=== PATIENT | male | born 1965 | race African-American/Black ===

== ENCOUNTER 2016-12-11 19:29 | Inpatient (IN) | payer MEDICARE, MEDICAID ==
[~2016-12-11 19:29] MED LIST: IMI100 PO
[2016-12-11 19:32] VITALS: BP 148/102; PULSE 112; RESP 16; O2SAT 94
[2016-12-11] MEDS ORDERED: 0.9% Sodium Chloride 1,000 ML IV ONE ×3 (19:53→21:25)
--- NOTE | 2016-12-11 19:53 | ED.REPORT ---
HPI-General Illness Date of Service Dec 11, 2016 ED Provider: Clarke Jernigan MD 51 year old male who presents to the ED referred from his PCP due to a BGL of 1202. Pt saw his PCP, Dr. Brown, due to recent flu-like illness. Pt states that he has been feeling thirsty, urinating more frequently and vomiting in the last 2 weeks. Pt has no history of DM or any other known medical history. No CP, SOB , fever, chills and abd pain. Labs today were Na+ 122, K+ 4.9 BUN 22 Creatinine 1.38 BGL 1202 and Nl transaminases. Nursing Notes Stated Complaint: HIGH BLOOD SUGAR Chief Complaint: General Complaint Nursing Notes Reviewed: Yes Allergies: Coded Allergies: No Known Allergies (Verified Allergy, Unknown, 10/16/16) Scheduled Gabapentin (Gabapentin) 300 Mg Capsule 300 MG PO TID Scheduled PRN Hydrocodone-Acetaminophen 5-325 mg (Hydrocodone-Acetaminophen 5-325 mg) 1 Each Tablet 1 EACH PO QID PRN PRN For Pain Sumatriptan (Imitrex) 100 Mg Tablet 100 MG PO PRN PRN PRN migraine General Time Seen by MD: 19:50 Chief Complaint Not feeling well Hx Obtained From: Patient, Primary care provider Arrived By: Walk-in Sudden in Onset?: No Onset Occurred: More than a week ago... Symptom Duration: Since onset Severity: Current: No pain currently Associated with: Denies: Chest pain, Fever, Shortness of breath Pertinent Negative: Relieved by nothing Recent Healthcare: Recent doctor visit Past Medical History Past Medical History Denies past medical history Past Surgical History right knee surgery Right inguinal herniorrhaphy Reports: Inguinal hernia repair Smoking History Smoker Current Status UNK Social History Other Social History: Ambulatory Status Independent Review of Systems Full Review of Systems Constitutional: Denies: Chills, Fever Respiratory: Denies: Non-productive cough, Shortness of breath Cardiovascular: Denies: Chest pain, Syncope GI: Reports: Nausea, Vomiting, Denies: Abdominal pain, Diarrhea Endocrine: Reports: Polydipsia, Polyuria Neurologic: Denies: Change LOC, Confusion Complete sys rev & neg: except as marked. Physical Exam Vital Signs Vital Signs Date Time Temp Pulse Resp B/P Pulse Ox O2 Delivery O2 Flow Rate FiO2 12/11/16 21:38 82 20 149/78 98 Room Air 12/11/16 19:32 37.2 112 16 148/102 94 Room Air Initial VS: Reviewed Head / Eyes: Atraumatic, Normocephalic, PERRL ENT: Conjunctiva normal, No scleral icterus Neck: Supple, Non-tender, Full range of motion Respiratory: Breath sounds normal, Clear to auscultation, No respiratory distress Cardiovascular: Regular rate & rhythm, Heart sounds normal, Intact distal pulses Abdomen / GI: Soft, Non-tender, No guarding, No rebound, No distention Extremities: Vascular intact, Neuro intact, No swelling (at calves), No tenderness (at calves) Skin: Warm, Dry, No cyanosis Neurologic: Alert, Oriented, Nonfocal Psychiatric: Mood/affect normal, Behavior normal, Normal thought content General/Constitutional: Awake, Alert Dehydrated. Pt has 4 cups Mouth: Positive: Mucous membranes dry Interpretation & Diagnostics Lab Results Interpretation Result Diagram: 12/11/16 1950 12/11/16 1950 Test 12/11/16 19:34 12/11/16 19:50 12/11/16 20:26 Hold Urine Received (Received) White Blood Count 7.1th/mm3 (3.8-10.1) Red Blood Count 5.29mil/mm3 (4.40-5.80) Hemoglobin 15.1g/dL (13.8-17.2) Hematocrit 43.8% (41.0-50.0) Mean Corpuscular Volume 82.8fL (81-100) Mean Corpuscular Hemoglobin 28.5pg (27.0-35.0) Mean Corpuscular Hemoglobin Concent 34.5% (32.0-37.0) Red Cell Distribution Width 13.0% (12.3-15.4) Platelet Count 264bil/L (150-400) Neutrophils (%) (Auto) 67.4% (40-74) Lymphocytes (%) (Auto) 21.6% (14-46) Monocytes (%) (Auto) 9.3% (4-12) Eosinophils (%) (Auto) 0.6% (0-5) Basophils (%) (Auto) 1.0% (0-3) Sodium Level 126mEq/L (134-144) Potassium Level 4.3mEq/L (3.5-5.2) Chloride Level 83mEq/L (97-108) Carbon Dioxide Level 21mmol/L (18-29) Blood Urea Nitrogen 23mg/dL (6-24) Creatinine 1.33mg/dL (0.76-1.27) Estimat Glomerular Filtration Rate 60mL/min (>59) Glucose Level 1050mg/dL (60-99) Lactic Acid Level 3.1mmol/L (0.4-2.0) Calcium Level 10.1mg/dL (8.5-10.1) Magnesium Level 2.4mg/dL (1.6-2.6) Total Bilirubin 0.8mg/dL (0.0-1.2) Aspartate Amino Transf (AST/SGOT) 24U/L (0-50) Alanine Aminotransferase (ALT/SGPT) 29U/L (0-44) Alkaline Phosphatase 243U/L (25-150) Total Protein 9.3g/dL (6.4-8.4) Albumin 4.9g/dL (3.4-5.0) Urine Color Straw (YELLOW) Urine Appearance Clear (CLEAR,HAZY) Urine pH 5.0 (5.0-8.0) Urine Specific Scheller 1.020 (1.003-1.035) Urine Protein Negativemg/dL (NEG,TRACE) Urine Glucose (UA) 1000mg/dL (NEGATIVE) Urine Ketones Negativemg/dL (NEGATIVE) Urine Occult Blood Trace (NEGATIVE) Urine Nitrite Negative (NEGATIVE) Urine Bilirubin Negative (NEGATIVE) Urine Urobilinogen Normalmg/dL (NORMAL) Urine Leukocyte Esterase Negative (NEGATIVE) Urine RBC 0-2/hpf (0-2) Urine WBC 0-5/hpf (0-5) Urine Epithelial Cells None/hpf (NONE-MOD) Urine Crystals None seen (NONE SEEN) Urine Bacteria Few/hpf (NONE-FEW) Urine Hyaline Casts None/lpf (NONE) Urine Granular Casts None seen (NONE SEEN) Urine Waxy Casts None seen (NONE SEEN) Urine Red Blood Cell Casts None seen (NONE SEEN) Urine White Blood Cell Casts None seen (NONE SEEN) Urine Mucus None seen (None Seen) Urine Trichomonas None seen (NONE SEEN) Urine Yeast None (NONE SEEN) Urinalysis Comment None Urine Culture Reflexed Not indicated Re-Eval/Medical Decision Med Decision/Clinical Course 51 year old male who presents to the ED referred from his PCP due to a BGL of 1202. Pt saw his PCP, Dr. Brown, due to recent flu-like illness. Pt states that he has been feeling thirsty, urinating more frequently and vomiting in the last 2 weeks. Pt has no history of DM or any other known medical history. No CP, SOB , fever, chills and abd pain. Labs today were Na+ 122, K+ 4.9 BUN 22 Creatinine 1.38 BGL 1202 and Nl transaminases. Here in the emergency department patient is afebrile stable vital signs. He appears dehydrated and has 5 large cups of water at his bedside which she is vigorously drinking. Laboratory studies were notable as below: CBC unremarkable Sodium 126 Chloride 83 BUN 23 Creatinine 1.33 Glucose 1050 Lactic acid 3.1 Alk phos 243 Potassium 4.3 Anion gap- 18 Patient aggressive IV fluid resuscitation and was placed on an insulin infusion. Serial glucose measurements were monitored and potassium was monitored. His glucose levels improved. Anion gap was moderately elevated though he is nontoxic in appearance. Overall presentation most consistent with mild DKA/hyperglycemic hyperosmolar state. Patient admitted to the intensive care unit on insulin drip for close electrolyte monitoring and treatment of his hyperglycemia. Source of Hx: Old records Time of Eval: 20:14 Re-Evaluation/Progress Note: Updated pt of lab results. Recommended admission for new onset diabetes. Pt understands and agrees with plan. All questions addressed. Consultation : Referral / Consult Name: Linus Cummins MD Consulted With: Hospitalist Call Returned at: 20:19 Jack Machine Operator: Will see patient, Agrees with eval, Agrees with plan, Accepts admit Counseled Regarding: Diagnosis, Lab results, Need for admission Discharge & Departure Primary Impression: Type 2 diabetes mellitus with hyperosmolar nonketotic hyperglycemia Additional Impressions: Diabetic ketoacidosis Diabetes mellitus type: other specified (including BRITNEY) Diabetes mellitus complication detail: without coma Qualified Code: E13.10 - Other specified diabetes mellitus with ketoacidosis without coma High anion gap metabolic acidosis Severe dehydration Polydipsia Polyuria Hyperglycemia Disposition: ADMITTED TO HOSPITAL Discharge Condition All VS Reviewed: Yes Referrals: Bernadette Brown MD (PCP) Scribe Attestation Portions of this note were transcribed by Ree Santiago. I, (Dr. Jernigan) personally performed the history, physical exam and medical decision-making; I reviewed and confirmed the accuracy of the information in the transcribed note. Signed by: Ree Santiago. Stella, 12/11/20162015 copies to: Bernadette Brown MD, Beck O MD Dec 11, 2016 19:53 Ree Santiago Dec 11, 2016 20:21
[2016-12-11 20:03] LABS: EOSINOPHILS % (AUTO) 0.6 % (0-5); MONOCYTES % (AUTO) 9.3 % (4-12); Mean Corpuscular Hemoglobin 28.5 pg (27.0-35.0); Mean Corpuscular Volume 82.8 fL (81-100); NEUTROPHILS % (AUTO) 67.4 % (40-74); Platelet Count 264 bil/L (150-400)
[2016-12-11] MEDS ORDERED: Dextrose 5% 0.45% NaCl 1,000 ML IV PRN ×2 (20:16→21:50)
[2016-12-11] MEDS ORDERED: Insulin Human REGular Inj 100 UNIT in 0.9% Sodium Chloride-Pha MIX 100 ML IV SCH ×2 (20:16→21:21)
[2016-12-11] MEDS ORDERED: Ondansetron 2 mg/mL 2 mL Inj IVPUSH PRN ×2 (20:20→21:20)
[2016-12-11] MEDS ORDERED: Alum-Mag Hydrox-Simeth 30 mL Suspension PO PRN ×2 (20:20→21:20)
[2016-12-11 20:27] LABS: Magnesium 2.4 mg/dL (1.6-2.6)
[2016-12-11 20:38] LABS: COLOR,URINE STRAW (YELLOW)
[2016-12-11 20:39] LABS: APPEARANCE,URINE CLEAR (CLEAR,HAZY); OCCULT BLOOD,URINE TRACE (NEGATIVE); UROBILINOGEN,URINE NORMAL (NORMAL)
[2016-12-11] MEDS ORDERED: GABA-502 PO (20:51)
[2016-12-11] MEDS ORDERED: HYDR-4003 PO (20:51)
[2016-12-11] MEDS ORDERED: Polyethylene Glycol (PEG) 17 Gm Powder PO PRN (21:20)
[2016-12-11 21:38] VITALS: BP 149/78; PULSE 82; RESP 20; O2SAT 98
[2016-12-11] MEDS ORDERED: D5 0.45% NaCl + KCl 20 mEq/L 1,000 ML IV SCH (22:05)
[2016-12-11 22:17] VITALS: BP 133/63; PULSE 81; RESP 18; O2SAT 96
--- NOTE | 2016-12-11 22:43 | PCM.HPMED ---
Subjective Date of Service Dec 11, 2016 Primary Provider: Admitting Physician: Primary Care Physician: Bernadette Brown MD Attending Physician: Chief Complaint: Abnormal labs History of Present Illness: Patient is a 51-year-old with migraines and hypertension presenting as a referral from his PCP, Dr. Brown, for abnormal BMP with glucose of 1202. Patient reports onset of polydipsia and polyuria about one weeks ago following a flu- like illness. He also reports a 10lb weight loss over the past two months. Patient states his mother and sister both have diabetes. At time of visit, the patient reports feeling well in his usual state of health. He endorses some constipation but otherwise denies abdominal pain, chest pain, shortness of breath, headache, vision change, dysuria. In the ED, vitals: temp 37.2, HR 112, RR 16 satting 94% on room air, BP 148/ 102. Labs: Na 126, Cl 83, creatinine 1.33, glucose 1050, lactic acid 3.1, alkaline phosphatase 243. Review of Systems: A comprehensive review of systems was conducted with the patient and found to be negative except as above in the History of Present Illness. Allergies Coded Allergies: No Known Allergies (Verified Allergy, Unknown, 10/16/16) Home Medications Needs verification with patient's pharmacy as he does not recall some medications. Gabapentin 300mg QHS Sumatriptan 100mg daily PRN PMH Migraine headaches Reports history of [place] in 2013 Surgical History Bilateral knee arthroscopy Hernia repair Appendectomy Family History Mother with diabetes at [id number] from colon cancer Father in 60s from [place] Sister is 37-[id number]-gwh with diabetes Social History Occupation: Unemployed Hx Alcohol Use: No Hx Substance Use: No Smoking Status: Former Smoker Living Arrangement: with Friends/Roommate Exam Vital Signs Vital Sign - Last Date Time Temp Pulse Resp B/P Pulse Ox O2 Delivery O2 Flow Rate FiO2 12/11/16 21:38 82 20 149/78 98 Room Air 12/11/16 19:32 37.2 Exam General: No acute distress, well-developed, well-nourished, appropriately interactive. Trousers are soiled in urine. HEENT: Normocephalic, atraumatic. External ears without defect. Strabismus. Pupils equal, round, and reactive to light. Anicteric sclerae, moist conjunctivae, and no lid lag. Oropharynx with dry mucous membranes. Lips dry. Partials upper and lower. Neck: Supple. No lymphadenopathy or thyromegaly. Cardiovascular: Regular rate and rhythm with no murmurs, rubs, or gallops appreciated Pulmonary: Clear to auscultation bilaterally with no crackles, wheezes, or rhonchi. Normal respiratory effort with no use of accessory muscles. Abdomen: Decreased bowel tones. Soft, nontender, mild distension. Extremities: No clubbing, cyanosis, edema, or lymphadenopathy appreciated. Skin: Normal temperature, turgor, and texture; no rash, ulcers, or subcutaneous nodules appreciated. Neurological: Cranial nerves grossly intact. Psychiatric: Normal mood and affect. Alert and oriented to person, place, and time. Slow speech. Lab and Diagnostics Result Diagram: 12/11/16194912/11/161949 Assessment & Plan Patient is a 51-year-old with migraines and hypertension presenting as a referral from his PCP for blood glucose of 1202 on routine labs and admitted for hyperosmolar hyperglycemic state. 1. Hyperosmolar hyperglycemic state, acute. Present on admission. Active -Blood glucose of 1202 from PCP with polydipsia, polyuria and weight loss -This is a new diagnosis of diabetes -NPO. Non-DKA insulin protocol -BMP Q3 hours -Patient received 2L NS in ED. Continue fluid expansion 2. Hyperlactatemia, acute. Present on admission. Active -Lactic acid 3.1 -Likely secondary to #1 and hypovolemia -IV fluids as above. Trend lactic acid 3. Acute kidney injury. Present on admission. Active -Creatinine 1.33 -Unknown acuity. No baseline -Likely secondary to hypovolemia -IV fluids -Follow with BMP 4. Hyponatremia, acute. Present on admission. Active -Pseudohyponatremia secondary to hyperglycemia -Corrected Na 143 -Follow with BMP 5. Elevated alkaline phosphatase. Acuity unknown. Present on admission. Active -Benign physical examination -Uncertain etiology. Possibly related to #1 but may be liver related -Follow with CMP 6. Hypertension, chronic. Present on admission -Patient reports taking unknown antihypertensive at home -Will need to reconcile home medications Patient Status: Patient is admitted under inpatient status with expected length of stay greater than 2 midnights due to severity of presenting symptoms, risk of adverse event, and complexity of treatment plan. VTE Prophylaxis: Sub-Q Heparin (Unfractionated) Resuscitation Status: CPR: Attempt Resuscitation Attending Statement The patient was seen and examined together with Dr. Busby on 12/11 and I agree with the history, exam and plan as outlined in the note above. Nando Busby DO Dec 11, 2016 21:53 Linus Cummins MD Dec 11, 2016 23:36
[2016-12-11 22:45] VITALS: BP 150/87; PULSE 76; RESP 18; O2SAT 96
[2016-12-11 22:53] VITALS: PULSE 78
[2016-12-11] MEDS ORDERED: ANTI DIARRHEAL PO (23:12)
[2016-12-12] VITALS (7 sets, daily range): BP systolic 115–150; BP diastolic 63–83; PULSE 60–77; RESP 16–18; O2SAT 97–98
[2016-12-12] MEDS: Heparin 5,000 Unit/mL Inj SUBQ SCH ×3 (00:46→16:56)
[2016-12-12] MEDS: Dextrose 5% 0.45% NaCl 1,000 ML IV SCH ×2 (02:47→08:05)
--- NOTE | 2016-12-12 03:19 | NUR ---
PT received from ED approximately 2300 with hyperglycemia. HE was 399 when he arrived to floor. Continuing insulin gtt per protocol. HE is currently in the 200 range and on Alg. 3. His lactate has come down nicely with hydration. Voiding in urinal, clear, yellow urine. His assessment otherwise is benign, except for a resolving rash to the dorsal aspect of his R hand. PT has some urinary urgency so he has a brief on at this time. The bed alarm is on as pt gait is slightly unsteady and he calls appropriately for RN assist to BR. HIs ownly complaint is that he is thirsty. Denies any pain. V/S WNL. ORA.
[2016-12-12 05:55] LABS: BASOPHILS % (AUTO) 0.6 % (0-3); EOSINOPHILS % (AUTO) 2.2 % (0-5); MONOCYTES % (AUTO) 11.4 % (4-12); Mean Corpuscular Hemoglobin 28.7 pg (27.0-35.0); Mean Corpuscular Volume 82.2 fL (81-100); Platelet Count 212 bil/L (150-400)
[2016-12-12 06:08] LABS: Bilirubin, Direct 0.2 mg/dL (0.0-0.3)
[2016-12-12] MEDS ORDERED: Glucose 40% Oral Gel 15 Gm Tube PO PRN (08:35)
[2016-12-12] MEDS: Insulin LISPRO 300 Unit/3 mL Inj SUBQ SCH ×3 (12:17→21:09)
--- NOTE | 2016-12-12 16:56 | PCM.PNMED ---
Subjective Date of Service Dec 12, 2016 Subjective Patient was examined at bedside today. Patient denies any chest pain, shortness of breath, nausea, vomiting, diarrhea. Patient does complain of blurry vision more than usual. Patient has a baseline blurry vision secondary to a head trauma however the patient states that he feels that this is more than his usual baseline blurry vision. Exam Vital Signs Vital Sign - Last Date Time Temp Pulse Resp B/P Pulse Ox O2 Delivery O2 Flow Rate FiO2 12/12/16 16:08 77 16 129/75 98 Room Air 12/12/16 12:05 36.9 Intake and Output 12/11/16 12/11/16 12/12/16 Cumulative From/Thru 15:00 23:00 07:00 12/11/16 19:51 - 12/12/16 06:32 Intake Total 2000 ml 1699 ml 3699 ml Output Total 500 ml 500 ml Balance 2000 ml 1199 ml 3199 ml Intake IV Total 2000 ml 1699 ml 3699 ml Output Urine Total 500 ml 500 ml Exam Physical Exam: GEN: Patient was awake, alert, responding appropriately to questions HEENT: PERRLA, left lateral strabismus, Neck soft supple, trachea midline, poor dentition with only 4-5 lower teeth CV: +S1/S2, RRR, no murmurs auscultated Respiratory: CTAB, no wheezes, rales, rhonchi GI: +bowel sounds x4, firm but, compressible, non TTP EXT: no c/c/e Neuro: CN II-XII grossly intact Psych: mood and affect were appropriate IVs and Medications Medications Reviewed: Medications were reviewed in detail Medications Current Medications Dextrose/Sodium Chloride 1,000 ml @ 50 mls/hr Q20H PRN IV; Start 12/11/16 at 20: 16; Status Cancel Insulin Human Regular/Sodium Chloride 101 ml @ 0 mls/hr Q0M IV Last administered on 12/11/16t 21:32; Admin Dose 0 MLS/HR; Start 12/11/16 at 20:16; Stop 12/11/16 at 22:42; Status DC Al Hydrox/Mg Hydrox/Simethicone 30 ml Q6 PRN PO; Start 12/11/16 at 20:20; Status Cancel Ondansetron HCl Dose range: 4 mg to 8 mg Q4H PRN IVPUSH; Start 12/11/16 at 20:20 ; Status Cancel Acetaminophen 975 mg Q6H PRN PO; Start 12/11/16 at 20:20; Status Cancel Al Hydrox/Mg Hydrox/Simethicone 30 ml Q6H PRN PO; Start 12/11/16 at 21:20 Ondansetron HCl 4 to 8 mg Q4H PRN IVPUSH; Start 12/11/16 at 21:20 Senna 17.2 mg BID PRN PO; Start 12/11/16 at 21:20 Polyethylene Glycol 17 gm DAILY PRN PO; Start 12/11/16 at 21:20 Acetaminophen 650 mg 650 mg Q4H PRN PO; Start 12/11/16 at 21:20 Insulin Human Regular 100 unit/ Sodium Chloride 101 ml @ 0 mls/hr Q0M IV; Start 12/11/16 at 21:21; Stop 12/12/16 at 08:33; Status DC Dextrose/Sodium Chloride 1,000 ml @ 50 mls/hr Q20H PRN IV; Start 12/11/16 at 21: 50; Stop 12/12/16 at 01:22; Status DC Potassium Chloride/Dextrose/ Sod Cl 1,000 ml @ 250 mls/hr Q4H IV Last administered on 12/11/16 23:04; Admin Dose 250 MLS/HR; Start 12/11/16 at 22:05; Stop 12/12/16 at 01:10; Status DC Heparin Sodium (Porcine) 5000 unit 5,000 unit Q8 SUBQ Last administered on 09:03; Admin Dose 5,000 UNIT; Start 12/12/16 at 00:30 Dextrose/Sodium Chloride 1,000 ml @ 200 mls/hr Q5H IV Last administered on 08:05; Admin Dose 200 MLS/HR; Start 12/12/16 at 00:55; Stop 12/12/16 at 08:39 ; Status DC Metformin HCl 500 mg BIDWM PO; Start 12/12/16 at 17:30 Insulin Glargine 20 unit HS SUBQ; Start 12/12/16 at 21:00 Insulin Human Lispro Nutritional Dose to be given pr... [facility] SUBQ Last administered on 12/12/16 12:17; Admin Dose 3 UNIT; Start 12/12/16 at 12:00 Lab and Diagnostics Result Diagram: 12/12/16 02012/12/16 020 Assessment & Plan Patient is a 51-year-old with migraines and hypertension presenting as a referral from his PCP for blood glucose of 1202 on routine labs and admitted for hyperosmolar hyperglycemic state. Hyperosmolar hyperglycemic state, acute. Present on admission. Active -Blood glucose of 1202 from PCP with polydipsia, polyuria and weight loss blood glucose is now under 300 -This is a new diagnosis of diabetes -Diabetic diet -Discontinue fluids -Start metformin 500 mg twice a day, Lantus 20 units subcutaneous daily at bedtime, insulin sliding scale Hyperlactatemia, acute. Present on admission. Active (resolving) -Lactic acid 3.1 on admission currently 1.8 -Likely secondary to #1 and hypovolemia -Follow up lactic acid in the morning Acute kidney injury. Present on admission. Active (resolving) St. -Creatinine 1.33--> 1.07 -Unknown acuity. No baseline -Likely secondary to hypovolemia -Follow with BMP Hyponatremia, acute. Present on admission. Active -Pseudohyponatremia secondary to hyperglycemia -Corrected Na 141 -Follow with BMP Elevated alkaline phosphatase. Acuity unknown. Present on admission. Active -Benign physical examination -Uncertain etiology. Possibly related to #1 but may be liver related -Currently alkaline phosphatase is 134 within normal ranges the elevated alkaline phosphatase is most likely secondary to the hyperosmolar hyperglycemic state -Follow with CMP Hypertension, chronic. Present on admission -Patient reports taking unknown antihypertensive at home however patient blood pressures have been stable while here patient's most recent blood pressure was 129/75 -We will continue to monitor and start antihypertensive medication if necessary. Disposition: The patient is currently progressing well and faster than anticipated. We will continue to monitor the patient's blood glucose and make changes to the patient's new medication regimen as necessary. Patient may discharge home in the next 1-2 days. VTE Prophylaxis: Sub-Q Heparin (Unfractionated) Resuscitation Status: CPR: Attempt Resuscitation Lisandra Rivera DO Dec 12, 2016 16:56
--- NOTE | 2016-12-12 19:14 | NUR ---
Insulin Pt on insulin gtt at beginning of shift which was D/C'd and Pt started on sliding scale coverage. Pt's blood sugars in the 200s this shift, Pt covered per sliding scale and metformin started this evening. Pt given some teaching on the process of checking one's blood sugar and sliding scale use, Pt able to use lancet on self this evening.
[2016-12-12] MEDS ORDERED: Insulin GLARgine 100 Unit/mL Syringe SUBQ SCH (21:00)
[2016-12-13] MEDS: Heparin 5,000 Unit/mL Inj SUBQ SCH ×2 (00:51→10:47)
[2016-12-13 03:56] VITALS: BP 126/76; PULSE 65; RESP 16; O2SAT 99
[2016-12-13 04:46] VITALS: PULSE 61
--- NOTE | 2016-12-13 06:12 | NUR ---
Progress Note PT remains stable through night. V/S WNL. NSR on tele. UP ad jolly to BR. Gait steady. BG are in 200's. He received his first dose of glargine last noc. Rechecked at 0300 and BG was 237. Message to MD requesting order for Geodetic Technician to see pt today. We continue to educate him and he demonstrated doing his own BG check. PT very polite and appreciative of care.
[2016-12-13 08:00] VITALS: PULSE 55
[2016-12-13 08:10] LABS: Mean Corpuscular Hemoglobin 28.1 pg (27.0-35.0)
[2016-12-13 10:15] VITALS: BP 127/74; PULSE 63; RESP 16
[2016-12-13] MEDS: Insulin LISPRO 300 Unit/3 mL Inj SUBQ SCH ×2 (10:47→13:08)
--- NOTE | 2016-12-13 11:05 | PCM.DIMED ---
Discharge Instructions Date of Service Dec 13, 2016 Dates of Hospitalization Dec 11, 2016 at 21:55 Discharge Diagnosis Discharge Diagnosis Hyperosmolar hyperglycemic state Hyperprolactinemia Acute kidney injury Hyponatremia Elevated alkaline phosphatase Diet Heart Healthy, Diabetic Activity Other (gradually returned to her normal daily activities) Call your provider Fever or Chills, Shortness of breath, Bleeding, Chest pain, Excessive diarrhea, Other (excessive thirst) Patient Instructions Follow-up plan Please follow-up with your primary care provider within one week. If an appointment has not already been made please call to schedule an appointment. Please keep track of your blood sugars and keep an accurate record by putting down the date and time and how much her blood sugars were when he took them. Please bring this year primary care physician's office. Please follow-up with the diabetes clinic for further management and education of your diabetes. Follow-up Provider: Bernadette Brown MD Follow-up with PCP in: 1 week Lisandra Rivera DO Dec 13, 2016 11:05
[2016-12-13] MEDS ORDERED: INSU100V7 SUBQ (11:12)
[2016-12-13] MEDS ORDERED: METF500T PO (11:12)
[2016-12-13] MEDS ORDERED: LANC1COM MC (11:12)
[2016-12-13] MEDS ORDERED: BLOO-204 MC (11:12)
[2016-12-13] MEDS ORDERED: SYRI-233 MC (11:12)
[2016-12-13] MEDS ORDERED: INSLIS SUBQ (11:12)
--- NOTE | 2016-12-13 11:19 | PCM.DC.MED ---
Discharge Summary Date of Service Dec 13, 2016 Dates of Hospitalization Date of Hospital Admission Dec 11, 2016 at 21:55 Date of Discharge: Dec 13, 2016 Providers: Admitting Physician: Linus Cummins MD Primary Care Physician: Bernadette Brown MD Attending Physician: Linus Cummins MD Diagnosis at Time of Discharge Diagnosis at Time of Discharge Hyperosmolar hyperglycemic state Hyperprolactinemia Acute kidney injury Hyponatremia Elevated alkaline phosphatase Brief History Patient is a 51-year-old with migraines and hypertension presenting as a referral from his PCP, Dr. Brown, for abnormal BMP with glucose of 1202. Patient reports onset of polydipsia and polyuria about one weeks ago following a flu- like illness. He also reports a 10lb weight loss over the past two months. Patient states his mother and sister both have diabetes. At time of visit, the patient reports feeling well in his usual state of health. He endorses some constipation but otherwise denies abdominal pain, chest pain, shortness of breath, headache, vision change, dysuria. In the ED, vitals: temp 37.2, HR 112, RR 16 satting 94% on room air, BP 148/ 102. Labs: Na 126, Cl 83, creatinine 1.33, glucose 1050, lactic acid 3.1, alkaline phosphatase 243. Hospital Course Patient is a 51-year-old with migraines and hypertension presenting as a referral from his PCP for blood glucose of 1202 on routine labs and admitted for hyperosmolar hyperglycemic state. Patient was admitted and immediately started on the hyperosmolar hyperglycemic insulin protocol and IV fluids. Patient was also made nothing by mouth during this time. The patient was decreased from normal saline to D5 half normal saline until the patient's blood glucose fell to under 300. Once the patient's blood glucose was under 300 he was switched to 500 metformin twice a day, Lantus 20 units subcutaneous at bedtime, and continued on insulin sliding scale. The patient's morning blood glucose was 273 and the patient's Lantus was increased to 30 units daily at bedtime and then was placed on 10 units of insulin before breakfast and lunch, and metformin was continued at 500 mg twice a day. Patient seems to be tolerating this diabetes regiment and he was instructed to follow-up with his primary care physician for further diabetes management. The patient was educated by the nut former about diabetes and eating healthy with diabetes. The patient was also instructed on further weight loss and seems amenable to this as well. The patient was also given information to follow up with the diabetes clinic so that he can have further management of his diabetes and education of his diabetes as this is a new onset. The patient did have hyperlipidemia, acute kidney injury, hyponatremia, elevated alkaline phosphatase and this all seemed to be related to the hyperosmolar hyperglycemic state. Once the patient's blood glucose was under control these other issues resolved as well. The patient stated that he does have a history of high blood pressure however he did not remember his blood pressure medications. The patient blood pressure has been relatively stable since admission and the patient should return home on his regular blood pressure medication. The patient is being discharged home with prescriptions for Lantus, metformin, insulin lispro, a glucometer, and a prescription for blood glucose test strips and insulin syringes. Patient is being discharged home in stable condition. Exam Vital Signs (Last) Date Time Temp Pulse Resp B/P Pulse Ox O2 Delivery O2 Flow Rate FiO2 12/13/16 10:15 36.5 63 16 127/74 12/13/16 03:56 99 12/12/16 23:14 Room Air Exam Physical Exam: GEN: Patient was awake, alert, responding appropriately to questions HEENT: PERRLA, EOMI, Neck soft supple, trachea midline, nomocephalic/atraumatic CV: +S1/S2, RRR, no murmurs auscultated Respiratory: CTAB, no wheezes, rales, rhonchi GI: +bowel sounds x4, soft, compressible, non TTP EXT: no c/c/e Neuro: CN II-XII grossly intact Psych: mood and affect were appropriate Test 12/11/16 19:34 12/11/16 19:50 12/11/16 20:26 12/11/16 22:50 Hold Urine Received (Received) Hemoglobin A1c 12.3% (4.8-5.6) Magnesium Level 2.4mg/dL (1.6-2.6) Urine Color Straw (YELLOW) Urine Appearance Clear (CLEAR,HAZY) Urine pH 5.0 (5.0-8.0) Urine Specific [place] 1.020 (1.003-1.035) Urine Protein Negativemg/dL (NEG,TRACE) Urine Glucose (UA) 1000mg/dL (NEGATIVE) Urine Ketones Negativemg/dL (NEGATIVE) Urine Occult Blood Trace (NEGATIVE) Urine Nitrite Negative (NEGATIVE) Urine Bilirubin Negative (NEGATIVE) Urine Urobilinogen Normalmg/dL (NORMAL) Urine Leukocyte Esterase Negative (NEGATIVE) Urine RBC 0-2/hpf (0-2) Urine WBC 0-5/hpf (0-5) Urine Epithelial Cells None/hpf (NONE-MOD) Urine Crystals None seen (NONE SEEN) Urine Bacteria Few/hpf (NONE-FEW) Urine Hyaline Casts None/lpf (NONE) Urine Granular Casts None seen (NONE SEEN) Urine Waxy Casts None seen (NONE SEEN) Urine Red Blood Cell Casts None seen (NONE SEEN) Urine White Blood Cell Casts None seen (NONE SEEN) Urine Mucus None seen (None Seen) Urine Trichomonas None seen (NONE SEEN) Urine Yeast None (NONE SEEN) Urinalysis Comment None Urine Culture Reflexed Not indicated Lactic Acid Level 1.8mmol/L (0.4-2.0) Test 12/12/16 02:00 12/13/16 07:35 Neutrophils (%) (Auto) 50.0% (40-74) Lymphocytes (%) (Auto) 35.5% (14-46) Monocytes (%) (Auto) 11.4% (4-12) Eosinophils (%) (Auto) 2.2% (0-5) Basophils (%) (Auto) 0.6% (0-3) Total Bilirubin 0.5mg/dL (0.0-1.2) Direct Bilirubin 0.2mg/dL (0.0-0.3) Aspartate Amino Transf (AST/SGOT) 22U/L (0-50) Alanine Aminotransferase (ALT/SGPT) 23U/L (0-44) Alkaline Phosphatase 134U/L (25-150) Total Protein 7.0g/dL (6.4-8.4) Albumin 4.0g/dL (3.4-5.0) White Blood Count 4.8th/mm3 (3.8-10.1) Red Blood Count 4.31mil/mm3 (4.40-5.80) Hemoglobin 12.1g/dL (13.8-17.2) Hematocrit 36.2% (41.0-50.0) Mean Corpuscular Volume 84.0fL (81-100) Mean Corpuscular Hemoglobin 28.1pg (27.0-35.0) Mean Corpuscular Hemoglobin Concent 33.4% (32.0-37.0) Red Cell Distribution Width 12.7% (12.3-15.4) Platelet Count 172bil/L (150-400) Sodium Level 137mEq/L (134-144) Potassium Level 3.5mEq/L (3.5-5.2) Chloride Level 100mEq/L (97-108) Carbon Dioxide Level 26mmol/L (18-29) Blood Urea Nitrogen 10mg/dL (6-24) Creatinine 0.88mg/dL (0.76-1.27) Estimat Glomerular Filtration Rate 96mL/min (>59) Glucose Level 273mg/dL (60-99) Calcium Level 8.0mg/dL (8.5-10.1) Discharge Medications Discharge Medications Gabapentin (Gabapentin) 300 Mg Capsule 300 MG PO TID (Reported) Insulin Glargine (Lantus U100 Insulin Vial) 100 Unit/Ml Vial 30 UNIT SUBQ HS Prescribed by: ROBERT JOHNSON DO Insulin Human Lispro (HumaLOG U100 Insulin Vial) 100 Unit/Ml Unit 10 UNIT SUBQ BIDAC Check blood sugars before meals and at bedtime. Use correction factor only before meals. Blood Sugar Lispro Correction: <151, 0 units; 151-175, 1 unit; 176-200, 2 units; 201-225, 3 units; 226-250, 4 units; 251-275, 5 units; 276-300 , 6 units; 301-325, 7 units; 326-350, 8 units; 351-375, 9 units; 376-400, 10 units; >400, 12 units. Prescribed by: ROBERT JOHNSON DO Metformin (Glucophage) 500 Mg Tablet 500 MG PO BIDWM Prescribed by: ROBERT JOHNSON DO As needed ([Anti-diarrheal]) 2 MG PO PRN For Diarrhea or Loose Stool (Reported) Hydrocodone-Acetaminophen 5-325 mg (Hydrocodone-Acetaminophen 5-325 mg) 1 Each Tablet 1 EACH PO QID PRN PRN For Pain (Reported) Sumatriptan (Imitrex) 100 Mg Tablet 100 MG PO PRN PRN PRN migraine (Reported) Durable Medical Equipment Blood-Glucose Meter, Drum-Type (Accu-Chek) 1 Each Kit 1 EACH [facility] (DME) Prescribed by: ROBERT JOHNSON DO Lancets/Blood Glucose Strips (Fora [id number] Lanct-Str) 30 Gauge Combo..pkg 1 EACH [facility] (DME) Prescribed by: ROBERT JOHNSON DO Syring W-Ndl,Disp,Insul,0.3ML (Insulin Syringe) 1 Each Disp.syrin 1 EACH [facility] (DME ) Prescribed by: ROBERT JOHNSON DO Followup Plan Follow-up plan Please follow-up with your primary care provider within one week. If an appointment has not already been made please call to schedule an appointment. Please keep track of your blood sugars and keep an accurate record by putting down the date and time and how much her blood sugars were when he took them. Please bring this year primary care physician's office. Please follow-up with the diabetes clinic for further management and education of your diabetes. Discharge Diet: Heart Healthy, Diabetic Discharge Activity: Other (gradually returned to her normal daily activities) Follow-up Provider: Bernadette Brown MD Follow-up with PCP in: 1 week copies to: Bernadette Brown MD, Precious L DO Dec 13, 2016 11:19
--- NOTE | 2016-12-13 12:31 | NUR ---
Resting/Education Patient is resting comfortably, waiting for educational material and glucometer for return demonstration for blood sugar checks and injections prior to discharge.
--- NOTE | 2016-12-13 14:13 | NUR ---
Diabetic Appliance Education This RN demonstrated with repeat demonstration from patient: Setting up Glucometer, finger sticks and how to use new appliance with lancets, insulin injections, reading glucometer numbers, journaling readings, replacing lancets and drawing up insulin. Patient acknowledged, demonstrated and understood all information.
[2016-12-13] MEDS ORDERED: Insulin LISPRO 300 Unit/3 mL Inj SUBQ SCH ×4 (14:15→16:30)
--- NOTE | 2016-12-13 15:09 | NUR ---
Discharge Patient discharged at approximately 1450. Patient given discharge packet with educational material for HHS, next dose to be taken for medications clearly written and dated, new prescriptions and Glucometer with lancet pen. Patient acknowledged and understood all information. Patient's IV DC'd with catheter intact, tele DC'd alarm security or surveillance monitor notified. Patient left with all belongings, escorted by WORLD TRAVEL COUNSELOR to the door.
[2016-12-13] MEDS ORDERED: Insulin GLARgine 100 Unit/mL Syringe SUBQ SCH (21:00)
== END 2016-12-13 14:45 | disposition home or self-care (01) | DRG 638 ==
LOC: SED 19:29 → PCC 21:55
PROVIDERS: ADMIT Hospitalist; ATTEND Hospitalist
DX: E11.00 Type 2 diabetes mellitus with hyperosmolarity without nonketotic hyperglycemic-hyperosmolar coma (NKHHC) (principal); N17.9 Acute kidney failure, unspecified; E87.1 Hypo-osmolality and hyponatremia; E87.2 Acidosis; E86.0 Dehydration; I10 Essential (primary) hypertension; E78.5 Hyperlipidemia, unspecified; I25.2 Old myocardial infarction; Z83.3 Family history of diabetes mellitus

== ENCOUNTER 2016-12-24 10:56 | Emergency (ER) | payer MEDICARE, MEDICAID ==
[~2016-12-24] VITALS: Ht 193 cm; Wt 99.5 kg
[~2016-12-24 10:56] MED LIST changes: +ANTI DIARRHEAL PO; +BLOO-204 MC; +GABA-502 PO; +HYDR-4003 PO; +INSLIS SUBQ; +INSU100V7 SUBQ; +LANC1COM MC; +METF500T PO; +SYRI-233 MC
[2016-12-24 11:06] VITALS: BP 107/70; PULSE 90; RESP 16; O2SAT 97
--- NOTE | 2016-12-24 12:13 | ED.REPORT ---
HPI-NVD Date of Service Dec 24, 2016 ED Provider: Dameon Benson PA-C Pedro is a 51-year-old male with a recent diagnosis of diabetes who presents to the emergency department with abdominal pain and vomiting. Patient states that he woke up this morning and threw up several times without blood. He reports periumbilical pain. He also reports 3 episodes of loose stools last night. Patient states that he was diagnosed with diabetes 2 weeks ago "when my blood counts were really high." Reports taking all his medications today. Also complains of urinary frequency, but denies dysuria, discharge. Denies fever, chills, sweats, chest pain, difficulty breathing. Review of records indicates he was discharged from [facility]critical care 12/13/2016 after being treated for hyperglycemia. Nursing Notes Stated Complaint: VOMITING Chief Complaint: Male Abdominal Pain Nursing Notes Reviewed: Yes Allergies: Coded Allergies: No Known Allergies (Verified Allergy, Unknown, 12/24/16) Scheduled Ciprofloxacin (Ciprofloxacin) 500 Mg Tablet 500 MG PO BID Gabapentin (Gabapentin) 300 Mg Capsule 300 MG PO TID Insulin Glargine (Lantus U100 Insulin Vial) 100 Unit/Ml Vial 30 UNIT SUBQ HS Insulin Human Lispro (HumaLOG U100 Insulin Vial) 100 Unit/Ml Unit 10 UNIT SUBQ BIDAC Check blood sugars before meals and at bedtime. Use correction factor only before meals. Blood Sugar Lispro Correction: <151, 0 units; 151-175, 1 unit; 176-200, 2 units; 201-225, 3 units; 226-250, 4 units; 251-275, 5 units; 276-300 , 6 units; 301-325, 7 units; 326-350, 8 units; 351-375, 9 units; 376-400, 10 units; >400, 12 units. Metformin (Glucophage) 500 Mg Tablet 500 MG PO BIDWM Scheduled PRN ([Anti-diarrheal]) 2 MG PO PRN For Diarrhea or Loose Stool Hydrocodone-Acetaminophen 5-325 mg (Hydrocodone-Acetaminophen 5-325 mg) 1 Each Tablet 1 EACH PO QID PRN PRN For Pain Sumatriptan (Imitrex) 100 Mg Tablet 100 MG PO PRN PRN PRN migraine General Time Seen by MD: 11:51 Chief Complaint Vomiting Past Medical History Past Medical History Denies past medical history Past Surgical History right knee surgery Right inguinal herniorrhaphy Reports: Inguinal hernia repair Smoking History Former Smoker Social History Other Social History: Ambulatory Status Independent Review of Systems General: Denies fever, chills, malaise. HEENT: Denies congestion, headache, sore throat. Respiratory: Denies dyspnea, cough, shortness of breath, wheezing. Cardiovascular: Denies chest pain, palpitations. Gastrointestinal: Admits vomiting, diarrhea, abdominal pain. Genitourinary: Denies frequency, urgency, dysuria, hematuria. Otherwise as noted in HPI. Physical Exam General: Well appearing, well developed, well nourished, no acute distress. Head: Atraumatic, normocephalic. Eyes: No scleral icterus or injection. No discharge. Vision grossly intact. ENT: Voice clear, hearing grossly intact. Respiratory: Regular rate and rhythm. Breath sounds present, clear to auscultation and equal bilaterally. No respiratory distress. No increased work of breathing, speaks in complete sentences. Cardiovascular: Regular rate and rhythm, without murmur, gallop or rub. No pedal edema. Gastrointestinal: Abdomen flat and globally tender without guarding or rebound. Bowel sounds normoactive. Skin: Warm and dry. Neurological: Grossly nonfocal. Psychological: Alert and oriented. Speech appropriate, linear and logical. Behavior appropriate. Initial Vital Signs Vital Signs (First) Date Time Temp Pulse Resp B/P Pulse Ox O2 Delivery O2 Flow Rate FiO2 12/24/16 11:06 35.6 90 16 107/70 97 Room Air Initial VS: Reviewed, Vital signs normal Interpretation & Diagnostics PROCEDURE: CT ABDOMEN AND PELVIS WITH CONTRAST (PNL-7102) INDICATIONS: periumbilical pain, leukocytosis IMPRESSION: 1. No acute findings in the abdomen or pelvis to explain periumbilical pain. The appendix is normal. No bowel obstruction. No free air or fluid. 2. Splenic calcifications compatible with prior granulomatous infection. 3. Small fat filled umbilical hernia. 4. Probable injection sites in the abdominal wall bilaterally. 5. Indeterminate subcentimeter hypodensities within the liver, statistically hepatic cysts or hemangiomas. Lab Results Interpretation Result Diagram: 12/24/16 1235 12/24/16 1235 Test 12/24/16 12:35 12/24/16 14:50 White Blood Count 14.4th/mm3 (3.8-10.1) Red Blood Count 4.48mil/mm3 (4.40-5.80) Hemoglobin 12.7g/dL (13.8-17.2) Hematocrit 37.4% (41.0-50.0) Mean Corpuscular Volume 83.5fL (81-100) Mean Corpuscular Hemoglobin 28.3pg (27.0-35.0) Mean Corpuscular Hemoglobin Concent 34.0% (32.0-37.0) Red Cell Distribution Width 13.5% (12.3-15.4) Platelet Count 197bil/L (150-400) Neutrophils (%) (Auto) 74.3% (40-74) Lymphocytes (%) (Auto) 11.9% (14-46) Monocytes (%) (Auto) 11.5% (4-12) Eosinophils (%) (Auto) 0.1% (0-5) Basophils (%) (Auto) 0.6% (0-3) Sodium Level 129mEq/L (134-144) Potassium Level 3.6mEq/L (3.5-5.2) Chloride Level 89mEq/L (97-108) Carbon Dioxide Level 23mmol/L (18-29) Blood Urea Nitrogen 15mg/dL (6-24) Creatinine 1.16mg/dL (0.76-1.27) Estimat Glomerular Filtration Rate 70mL/min (>59) Glucose Level 274mg/dL (60-99) Calcium Level 8.8mg/dL (8.5-10.1) Total Bilirubin 1.2mg/dL (0.0-1.2) Aspartate Amino Transf (AST/SGOT) 61U/L (0-50) Alanine Aminotransferase (ALT/SGPT) 85U/L (0-44) Alkaline Phosphatase 147U/L (25-150) Total Protein 7.6g/dL (6.4-8.4) Albumin 3.4g/dL (3.4-5.0) Lipase 40U/L (13-60) Hold Rodriguez Top Tube Received (Received) Urine Color Dark yellow (YELLOW) Urine Appearance Slightly cloudy Urine pH 5.5 (5.0-8.0) Urine Specific [place] 1.030 (1.003-1.035) Urine Protein 100mg/dL (NEG,TRACE) Urine Glucose (UA) 500mg/dL (NEGATIVE) Urine Ketones 40mg/dL (NEGATIVE) Urine Occult Blood Large (NEGATIVE) Urine Nitrite Negative (NEGATIVE) Urine Bilirubin Negative (NEGATIVE) Urine Urobilinogen 8mg/dL (NORMAL) Urine Leukocyte Esterase Trace (NEGATIVE) Urine RBC 3-10/hpf (0-2) Urine WBC >50/hpf (0-5) Urine Epithelial Cells Few/hpf (NONE-MOD) Urine Crystals None seen (NONE SEEN) Urine Bacteria Many/hpf (NONE-FEW) Urine Hyaline Casts Rare/lpf (NONE) Urine Granular Casts Rare (NONE SEEN) Urine Waxy Casts None seen (NONE SEEN) Urine Red Blood Cell Casts None seen (NONE SEEN) Urine White Blood Cell Casts None seen (NONE SEEN) Urine Mucus Present (None Seen) Urine Trichomonas None seen (NONE SEEN) Urine Yeast None (NONE SEEN) Urinalysis Comment None Urine Culture Reflexed Indicated Re-Eval/Medical Decision Med Decision/Clinical Course Wants an AIDS test and gabapentin for his pain. His is a patient of Dr. Brown, and a recommended that he address these issues with him. 51-year-old male with a recent diagnosis of diabetes and hospitalization for hyperglycemia presents with a chief complaint of vomiting. He states that he had periumbilical abdominal pain when he woke this morning and threw up 3 times , without blood. States that he has been taking his diabetes medications. On physical examination the patient has a somewhat odd affect, question of an intelectual disability. Physical exam reveals no abdominal tenderness but mild guarding. CBC reveals leukocytosis with left shift, mild transaminase elevation , moderate elevated glucose. Ordered CT scan of the abdomen to rule out appendicitis. This is negative for appendicitis, diverticulitis, cholecystitis, bowel obstruction, however there are some incidental findings that are unlikely to be causing his pain. Urinalysis reveals a urinary tract infection. Treatment urinary tract infection with 500 mg ciprofloxacin twice a day 10 days , suggest a primary care follow-up, provided return precautions. Patient understands plan and discomfort with this Discharge & Departure Impression: Primary Impression: Urinary tract infection Urinary tract infection type: site unspecified Hematuria presence: without hematuria Qualified Code: N39.0 - Urinary tract infection, site not specified Disposition: Home Discharge Condition All VS Reviewed: Yes Condition: Stable Patient Instructions: Acute Abdominal Pain (ED) Additional Instructions: Evaluation in the emergency department for abdominal pain and vomiting. CT scan of her abdomen does not reveal a cause for abdominal pain, but it is reassuring that this is unlikely to be caused by a dangerous condition such as appendicitis, bowel obstruction or an infection in your gallbladder. There were some incidental findings including calcifications in your spleen, a small fat filled umbilical hernia and possible hepatic cysts. These are unlikely to be causing pain and are not immediately dangerous. Tests of your urine indicated to have a infection in your bladder. I will prescribe you antibiotics for this. Please take them twice a day for the next 10 days. Be aware this medication might change how your metformin works. Please keep close tabs on your blood sugar while you are taking the antibiotics. Follow-up with your primary care provider in a few days. Return to emergency department for any new or worsening symptoms including fever, feeling, cold sweats, racing heart, increasing pain. Referrals: Bernadette Brown MD (PCP) EDSupervising Provider for APC: Robert Wheeler MD copies to: Bernadette Brown MD, Seth PA-C Dec 24, 2016 12:13
[2016-12-24] MEDS ORDERED: Ondansetron 2 mg/mL 2 mL Inj IVPUSH ONE (12:15)
[2016-12-24] MEDS ORDERED: 0.9% Sodium Chloride 1,000 ML IV ONE (12:15)
[2016-12-24 13:24] LABS: Mean Corpuscular Hemoglobin 28.3 pg (27.0-35.0); Mean Corpuscular Volume 83.5 fL (81-100)
[2016-12-24 13:25] LABS: BASOPHILS % (AUTO) 0.6 % (0-3); EOSINOPHILS % (AUTO) 0.1 % (0-5); MONOCYTES % (AUTO) 11.5 % (4-12); NEUTROPHILS % (AUTO) 74.3 % (40-74); Platelet Count 197 bil/L (150-400)
[2016-12-24 15:20] LABS: APPEARANCE,URINE SLIGHTLY CLOUDY (CLEAR,HAZY); COLOR,URINE DARK YELLOW (YELLOW); PH,URINE 5.5 (5.0-8.0)
[2016-12-24 15:21] LABS: OCCULT BLOOD,URINE LARGE (NEGATIVE); UROBILINOGEN,URINE 8 mg/dL (NORMAL)
--- NOTE | 2016-12-24 15:46 | DRSVH ---
PROCEDURE: CT ABDOMEN AND PELVIS WITH CONTRAST ([id number]) INDICATIONS: periumbilical pain, leukocytosis TECHNIQUE: After the administration of intravenous contrast, 5 mm thick sections acquired from the diaphragm to the symphysis. 5 mm coronal and sagittal reformats were acquired. For radiation dose reduction, the following was used: automated exposure control, adjustment of mA and/or kV according to patient siz e. COMPARISON: None. FINDINGS: Image quality: Excellent. ABDOMEN: Lung bases: Lung bases are clear. Heart size is normal. Solid organs: Liver and spleen are normal in size and enhancement. Scattered splenic calcifications compatible with prior granulomatous infection. Several subcentimeter hypodensities within the right l obe of liver, indeterminate but probable cysts or hemangiomas. Gallbladder appears normal. Biliary s ystem is non dilated. Pancreas enhances normally. No adrenal nodules. Kidneys demonstrate normal s ize and enhancement, without hydronephrosis. Peritoneum and bowel: Bowel loops demonstrate normal wall thickness and caliber. Normal retrocecal a ppendix. No free fluid or air. Nodes and vessels: No retroperitoneal or mesenteric adenopathy by size criteria. Aorta and inferior vena cava are normal in size. Miscellaneous: Small fat filled umbilical hernia. Air lucencies within the anterior abdominal wall bi laterally, likely injection sites. PELVIS: Genitourinary: Bladder wall thickness is normal. Prostate is mildly enlarged. Miscellaneous: No inguinal hernias or adenopathy. Bones: No suspicious bony lesions. No vertebral body compression fractures. Degenerative joint dise ase L5-S1. IMPRESSION: 1. No acute findings in the abdomen or pelvis to explain periumbilical pain. The appendix is normal. No bowel obstruction. No free air or fluid. 2. Splenic calcifications compatible with prior granulomatous infection. 3. Small fat filled umbilical hernia. 4. Probable injection sites in the abdominal wall bilaterally. 5. Indeterminate subcentimeter hypodensities within the liver, statistically hepatic cysts or hemangi omas. Dictated by: Ari Rinaldi M.D. on 12/24/2016 at 15:37 Approved by: Ari Rinaldi M.D. on 12/24/2016 at 15:44
[2016-12-24 16:02] VITALS: BP 107/70; PULSE 70; RESP 16; O2SAT 98
[2016-12-24] MEDS ORDERED: CIPR-198 PO (16:28)
[2016-12-24] MEDS ORDERED: levoFLOXacin 750 mg Tablet PO ONE (16:35)
== END 2016-12-24 16:31 | disposition home or self-care (01) ==
LOC: SED 10:56
DX: N39.0 Urinary tract infection, site not specified (principal); B96.1 Klebsiella pneumoniae [K. pneumoniae] as the cause of diseases classified elsewhere; E11.9 Type 2 diabetes mellitus without complications; Z79.4 Long term (current) use of insulin; Z79.84 Long term (current) use of oral hypoglycemic drugs; Z87.891 Personal history of nicotine dependence
CPT/HCPCS: 36415; 74177; 80053; 81000; 82948; 83690; 85025; 87077; 87086; 87088; 87186; 96361; 96374; 96375; 99285; J2405; J7030; Q9967